=== PATIENT | male | born 1945 | race Caucasian/White ===

== ENCOUNTER 2019-11-29 06:21 | Observation (INO) ==
--- NOTE | 2019-10-25 15:49 | PAT Medication Instructions ---
Medication Instructions Date of Service October 25, 2019 Home Medications Medication Instructions Recorded hydrocortisone 2.5 % topical cream 1 appln MT BID PRN #30 gm 09/11/19 with perineal applicator ascorbic acid (vitamin C) 500 mg capsule 500 mg PO QAM aspirin 81 mg tablet,delayed release 81 mg PO QAM glucosamine-chondroitin 250 mg-200 mg tablet 1 tab PO BID hydrocortisone 2.5 % topical cream with perineal applicator 1 appln MT BID PRN Now [facility] 1 tab PO BID acetaminophen [Tylenol Extra Strength] 1,000 mg PO Q6H PRN lisinopril 5 mg PO QAM STOP taking 2 weeks before surgery (or as soon as possible if surgery is within 2 weeks) glucosamine-chondroitin 250 mg-200 mg tablet 1 tab PO BID DO NOT take the morning of surgery ascorbic acid (vitamin C) 500 mg capsule 500 mg PO QAM [facility] 1 tab PO BID lisinopril 5 mg PO QAM hydrocortisone 2.5 % topical cream with perineal applicator 1 appln MT BID PRN Take morning of surgery With a small sip of water, OTHERWISE NOTHING TO EAT OR DRINK AFTER MIDNIGHT: acetaminophen [Tylenol Extra Strength] 1,000 mg PO Q6H PRN (okay to take up to 4 hours prior to surgery if needed) Take evening before surgery hydrocortisone 2.5 % topical cream with perineal applicator 1 appln MT BID PRN (if needed) [facility] 1 tab PO BID acetaminophen [Tylenol Extra Strength] 1,000 mg PO Q6H PRN (if needed) Other Notes If you have any questions please call us at [phone] or [phone] or [phone] or [phone]
--- NOTE | 2019-10-29 11:21 | Anesthesiology Consultation ---
Date of Service October 29, 2019 Assessment & Plan (1) Encounter for pre-operative examination: - Per PAT assessment on 10/28: Travel screen- Lives in [facility]. Uses PPE. No known COVID-19 positive contacts. No current COVID-19 related symptoms. Surgeon arranging preop COVID testing (11/24; [facility]). Awaiting results. Chart Review Chart Review: Acceptable Risk for Surgery and Patient seen in Pre Admission Testing Teaching & Discussion Pre-Anesthesia Teaching/Discussion Notes: Instructed NPO after midnight before surgery,except medications with 15 cc of water. Medication instructions provided according to the PAT guidelines. History Surgery Operation Date: 11/29/19 10:40 Proposed Procedures p Left Total Knee Arthroplasty - Brandt Canchola MD Height/Weight Height: 5 ft 10.5 in Weight: 92.8 kg Allergies Allergy/AdvReac Type Severity Reaction Status Date / Time piroxicam [From Feldene] Allergy Unknown unknown Verified 10/29/19 11:14 celebrex AdvReac Unknown nose Uncoded 10/29/19 11:14 bleeding, tinnitus Medications Home Medications Medication Instructions Recorded Confirmed Last Taken ascorbic acid (vitamin C) 500 mg 500 mg PO QAM cap 10/22/18 10/22/19 Unknown capsule aspirin 81 mg tablet,delayed 81 mg PO QAM tab 10/22/18 10/22/19 Unknown release glucosamine-chondroitin 250 mg-200 1 tab PO BID tab 10/22/18 10/22/19 Unknown mg tablet hydrocortisone 2.5 % topical cream 1 appln MO BID PRN #30 gm 09/11/19 10/22/19 Unknown with perineal applicator [facility] 1 tab PO BID 10/22/19 10/22/19 Unknown acetaminophen [Tylenol Extra 1,000 mg PO Q6H PRN 10/22/19 10/22/19 Unknown Strength] lisinopril 5 mg PO QAM 10/22/19 10/22/19 Unknown Past Medical History Medical History Allergic rhinitis Benign essential hypertension BPH (benign prostatic hyperplasia) Osteoarthritis Exercise / Class Metabolic Activity II 4-5 Yardwork/Stairs/Walk up hill (one flight of stairs (no chest pain or sob)) Past Family History Family History Father Cancer, Onset Age: 64 Bladder 64, stomach Cancer age 64 SLE (systemic lupus erythematosus) Sister Multiple myeloma, Onset Age: 62 Denies family history of Ovarian cancer Prostate cancer Myocardial infarction Breast cancer Colorectal cancer Past Surgical History Surgical History History of arthroplasty of left shoulder 2007 History of colonoscopy History of inguinal herniorrhaphy History of left shoulder replacement History of lumbar laminectomy History of total hip arthroplasty right Past Anesthesia History No Hx of Anesthesia Complications and No Family Hx of Anesthesia Complications History of PONV No Hx of PONV and No Hx of Motion Sickness Social History Smoking Status: Former smoker Do You Dip or Chew Tobacco: No Smoking End Date: QUIT 20 YEARS AGO Hx Alcohol Use: Yes Alcohol type: beer alcohol intake frequency: 0-2 drinks per day (1 drink/day) Hx Substance Use: No Review of Systems Patient denies chest pain, shortness of breath, dyspnea on exertion, fever, chills, cough, wheezing, palpitations. Physical Exam Vital Signs VITALS BP 132/87 P77 TEMP 98.2 SP02 94%RA RESP 16 PHYSICAL Full neck and c-spine range of motion. Full TMJ range of motion. TMD 3 finger breaths Mallampati Score 2 Dentition: upper/lower dentures Lungs: clear throughout to auscultation Cardiac: regular rate and rhythm, no murmurs noted Spine: normal Carotid arteries: negative bruit Extremities: no edema Testing Laboratory Results 10/29/19 11:39 10/29/19 11:39 PT 10.4 Seconds (9.0-12.0) 10/29/19 11:39 INR 1.0 (0.9-1.1) 10/29/19 11:39 APTT 25.0 Seconds (21.0-31.0) 10/29/19 11:39 Blood Type A Positive 10/29/19 11:39 Antibody Screen NEGATIVE 10/29/19 11:39 Surgeon's office made aware of low WBC* Electrocardiogram Date: 10/29/19 NSR with sinus arrhythmia at 64bpm. Chest X-Ray Date: 10/29/19 Findings: + NAD
--- NOTE | 2019-10-29 12:54 | XRay Report ---
XR chest Pre-admission PA/Lat CLINICAL HISTORY: Preoperative chest COMPARISON STUDY: No previous studies for comparison. FINDINGS: The cardiac and mediastinal contours are normal. There is no evidence of focal pulmonary co nsolidation. There is no evidence of failure. No pleural effusions are visualized.[ IMPRESSION: No active disease in the chest. ACT 112: Negative or not required by law. Electronically signed by: Luke Garcia M.D. 10/29/2019 12:53 PM
--- NOTE | 2019-10-29 13:11 | Electrocardiogram Report ---
Test Reason : Blood Pressure : / mmHG Vent. Rate : 064 BPM Atrial Rate : 064 BPM P-R Int : 146 ms QRS Dur : 088 ms QT Int : 388 ms P-R-T Axes : 049 067 026 degrees QTc Int : 400 ms Normal sinus rhythm with sinus arrhythmia Normal ECG No previous ECGs available Confirmed by Joshua Connolly ([id number]) on 10/29/2019 1:11:15 PM Referred By: Brandt Canchola Confirmed By:Joshua Connolly
[2019-10-29 13:47] LABS: Basophils # (auto) 0.02 K/uL (0-0.2); Basophils % (auto) 0.5 %; Eosinophils # (auto) 0.05 K/uL (0-0.5); Eosinophils % (auto) 1.3 %; Hematocrit (blood only) 41.1 % (42-52); Lymphocytes # (auto) 0.88 K/uL (1.2-3.4); Lymphocytes % (auto) 22.5 %; Mean Corpuscular Hemoglobin 32.6 pg (25-34); Mean Corpuscular Hgb Conc 34.1 g/dL (32-36); Mean Corpuscular Volume 95.6 fL (80-100); Mean Platelet Volume 11.6 fL (7.4-10.4); Monocytes # (auto) 0.47 K/uL (0.11-0.59); Neutrophils # (auto) 2.49 K/uL (1.4-6.5); Neutrophils % (auto) 63.7 %; Platelet Count 208 K/uL (130-400); RDW Standard Deviation 45.6 fL (36.4-46.3); White Blood Count 3.91 K/uL (4.8-10.8)
[2019-10-29 13:52] LABS: Partial Thromboplastin Ratio 0.9; Prothrombin Time 10.4 Seconds (9.0-12.0)
[2019-10-29 13:53] LABS: BUN Creatinine Ratio 20.7 (10-20); Blood Urea Nitrogen 18 mg/dl (7-18); C Reactive Protein < 0.29 mg/dl (0-0.29); Calcium 9.7 mg/dl (8.5-10.1); Carbon Dioxide 27 mmol/L (21-32); Chloride 104 mmol/L (98-107); Creatinine Clr Calc Pharmacy 84.4 ml/min; Est GFR (African American) 97.6; Est GFR (Non-African American) 84.2; Glucose 94 mg/dl (70-99); Potassium 4.1 mmol/L (3.5-5.1); Sodium 138 mmol/L (136-145)
--- NOTE | 2019-11-23 17:49 | History and Physical Report ---
DATE OF ADMISSION: 11/29/2019 CHIEF COMPLAINT: Left knee pain, discomfort and stiffness. HISTORY OF PRESENT ILLNESS: The patient is a 74-year-old gentleman from [place] who presents primarily for treatment of his knees. He has got a long history of bilateral knee pain and discomfort, left side greater than the right. He injured his left knee 3-4 years ago and had some degree of quad tendon repair done in [place]. He was in [place]. 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 He fell and described a patellar fracture per the operative reports consistent with a quad repair. He is followed at [facility] for a while. His knees continue to bother him. He has been through extensive conservative care, which does not help. The more he is up on it, the more it hurts. He has difficulty climbing steps. He would like to have his knee fixed. PAST MEDICAL HISTORY: Include: 1. Hypertension. 2. Low back pain/sciatica. PAST SURGICAL HISTORY: Include: 1. Left shoulder hemiarthroplasty 15 years ago. 2. Left quad tendon repair 12/10/2012 at [place], [place]. 3. Right hip replacement. 4. Right hernia repair. 5. Back surgery. ALLERGIES: None. CURRENT MEDICINES: Include: 1. Osteo Bi-Flex. 2. Lisinopril. 3. Prostate support. 4. Low dose aspirin. 5. Dasia-C. SOCIAL HISTORY: A 74-year-old male. He lives in [place]. He is . A 1-2 drinks per day. Does not smoke. FAMILY HISTORY: Noncontributory. REVIEW OF SYSTEMS: Significant for multiple musculoskeletal aches and pains. Denies any chest pain or shortness of breath. No history of DVT or PE. No known bleeding problems. PHYSICAL EXAMINATION GENERAL: Shows a pleasant, middle-aged male. He looks to be in good health. HEENT: Benign. NECK: Supple, no lymphadenopathy. LUNGS: Clear to auscultation. HEART: Has a regular rate and rhythm. ABDOMEN: Soft, nontender, nondistended. EXTREMITIES: Grossly neurovascularly intact except as follows. Examination of the left knee reveals a patient who ambulates independently. He has got varus alignment to his knee, a little bit of varus thrust. He has got a well-healed incision over the front of his knee. Small knee effusion. Range of motion about 10 degrees short of full extension to 120 degrees of flexion. There is no instability. No pain with hip motion. X-RAYS: X-rays of the left knee reviewed. Shows advanced left knee DJD. He has got complete loss of his joint space. He has got osteophytes in all 3 compartments with some chondrocalcinosis. He has got evidence of previous quad repair. 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 He does have a little bit of an extensor lag and a flexion contracture. He has failed conservative treatment. He would like to have his knee fixed. PLAN: We are going to take him to the operating room and do a left total knee replacement. I did tell him with a history of a quad repair, it certainly makes a bit more difficult. The risks and benefits of left total knee replacement were explained to the patient including but not limited to DVT, PE, , infection, neurological injury, vascular injury, bleeding problem, pain, limited range of motion, stiffness, failure to relieve symptoms, incomplete relief of symptoms, need for further surgery in future, fracture, leg length inequality, nerve palsy, persistent pain, etc. The patient understands and desires to proceed. Informed consent was obtained.
[~2019-11-29 06:21] MED LIST: ACETAMINOPHEN 500 MG TAB PO SCH; BUPIVACAINE LIPOSOME/PF 266 MG, BUPIVACAINE/EPINEPHRINE 50 ML, SODIUM CHLORIDE 0.9% 30 ... INFIL SCH; CEFAZOLIN 2000MG 2,000 MG/15 ML SYR IV SCH; FAMOTIDINE 20 MG TAB PO SCH; GABAPENTIN 300 MG CAP PO SCH; LR 500ML BOLUS, THEN 15ML/HR IV SCH; LR 60ML/HR IV SCH; METOCLOPRAMIDE HCL 10 MG TABLET PO SCH; TRANEXAMIC ACID 1,000 MG **IV Intra-op IV SCH
[2019-11-29] MEDS ORDERED: BUPIVACAINE/EPINEPHRINE 0.25% 1:200,000 30 ML VIAL ONE ×2 (06:29→08:41)
[2019-11-29] MEDS ORDERED: BUPIVACAINE 0.5 % 5 MG/1 ML PF 10ML VIAL ONE (06:29)
--- NOTE | 2019-11-29 06:48 | History & Physical Bridge Note ---
Date of Service November 29, 2019 History & Physical Bridge Note I have examined the patient, reviewed the History & Physical and in the interval since the performance of the History & Physical I have noted the following changes of clinical significance: no changes noted
[2019-11-29] MEDS ORDERED: LIDOCAINE HCL 2% 2 ML VIAL/AMP(20MG/ML) INFIL ONE (07:31)
[2019-11-29] MEDS ORDERED: PROPOFOL IV EMULSION 10 MG/ML 20 ML VIAL IV ONE ×2 (07:31→09:34)
[2019-11-29] MEDS ORDERED: MIDAZOLAM HCL 1 MG/ML 2ML VIAL ONE (07:32)
[2019-11-29] MEDS ORDERED: ONDANSETRON INJ 2 MG/ML 2 ML VIAL ONE (07:32)
[2019-11-29] MEDS ORDERED: fentaNYL citrate 100 MCG/2 ML VIAL ONE (07:32)
[2019-11-29] MEDS ORDERED: DEXAMETHASONE SOD INJ 4 MG/ML VIAL ONE (07:33)
[2019-11-29] MEDS ORDERED: PROMETHAZINE HCL 12.5 MG in SODIUM CHLORIDE 0.9% 50 ML IV PRN (08:07)
[2019-11-29] MEDS ORDERED: ONDANSETRON INJ 2 MG/ML 2 ML VIAL IV PRN ×2 (08:07→12:39)
[2019-11-29] MEDS ORDERED: ATROPINE SULFATE 0.1 MG/ML 10ML SYR IV PRN (08:07)
[2019-11-29] MEDS ORDERED: fentaNYL citrate 100 MCG/2 ML VIAL IV PRN (08:07)
[2019-11-29] MEDS ORDERED: ePHEDrine sulfate 50 MG/ML AMP IV PRN (08:07)
[2019-11-29] MEDS ORDERED: HYDROmorphone INJ 2 MG/ML SYR/VIAL IV PRN (08:07)
[2019-11-29] MEDS ORDERED: SODIUM CHLORIDE 0.9% PF 50 ML VIAL ONE (08:41)
[2019-11-29] MEDS ORDERED: VANCOMYCIN HCL 1000MG/20ML VIAL ONE (08:42)
[2019-11-29] MEDS ORDERED: BUPIVACAINE LIPOSOME 1.3% 266 MG/20 ML VIAL ONE (08:42)
[2019-11-29] MEDS ORDERED: BACITRACIN INJ 50,000 UNIT VIAL ONE (08:42)
[2019-11-29] MEDS ORDERED: ePHEDrine sulfate 50 MG/ML AMP ONE (10:40)
--- NOTE | 2019-11-29 10:50 | Post Operative Brief Note ---
PG Immediate Post Op with CF Date of Surgery November 29, 2019 Pre & Post Diagnosis Operation Date: 11/29/19 08:50 Pre-Op Diagnosis: Left Knee Advanced Degenerative Joint Disease Post-Op Diagnosis: Left Knee Advanced Degenerative Joint Disease I identified the patient and participated in the time-out.: Yes Procedure Operation Date: 11/29/19 08:50 Actual Procedures p Left Total Knee Arthroplasty(Left) - Brandt Canchola MD Surgeon Brandt Canchola MD Real Estate Sales Agent Kay, PAC Estimated Blood Loss 50 Findings Consistent with Post-Op Diagnosis Fluids 1300 cc Specimens Specimen Description: A. Left knee bone and tissue. Drains Reynoso Catheter Anesthesia Type Spinal MAC Complications none Disposition Accompanied Patient To Recovery: No Disposition: Recovery Room
--- NOTE | 2019-11-29 11:04 | Operative Report ---
Post Operative Report Pre & Post Diagnosis Operation Date: 11/29/19 08:50 Pre-Op Diagnosis: Left Knee Advanced Degenerative Joint Disease Post-Op Diagnosis: Left Knee Advanced Degenerative Joint Disease I identified the patient and participated in the time-out.: Yes Procedure Operation Date: 11/29/19 08:50 Actual Procedures p Left Total Knee Arthroplasty(Left) - Brandt Canchola MD Surgeon Brandt Canchola MD Biomedical Engineer Kay, PAC Estimated Blood Loss 50 Findings Consistent with Post-Op Diagnosis Operative findings revealed advanced left knee DJD. He had grade 4 [id number] disease primarily the medial and patellofemoral compartments. He had a fixed varus deformity to his knee. He had a lot of bone in the quad tendon itself in a very stiff extensor mechanism due to his previous quad repair. Moderate-sized joint effusion. Fluids 1300 cc. Specimens Left knee sent for pathology. Drains None. 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 He did have a left quad tendon repair from a fall about 7 years ago. He never got to full motion of his knee back. He said persistent pain discomfort unresponsive conservative care. X-rays show advanced DJD. He elected proceed with total knee arthroplasty. Description of Procedure Operative implants consist of: 1. Biomet Vanguard size 75 left posterior stabilized femoral component. 2. Biomet size 75 tibial tray. 3. 10 mm posterior stabilized polyethylene insert. 4. 31 x 8 all poly-patella. The patient was taken to the operating room identified and placed on the operating table supine position. All contact areas were appropriately padded. IV antibiotics were tried by anesthesia team. A spinal anesthetic and abductor canal block had been provided in the holding area. A Reynoso catheter was placed in sterile fashion. A left thigh turn was then placed in the left lower extremities and prepped and draped in usual sterile fashion. The left leg was elevated exsanguinated with use of an Esmarch interspace at 300 mmHg. An anterior approach left knee was then performed to longitudinal incision centered over the patella. I did use his previous incision from his quad repair. Sharp dissection was carried through subcutaneous tissues down to the extensor mechanism. A medial parapatellar arthrotomy incision was made. Some subperiosteal dissection was carried out medially. The fat pad was resected from each patella tendon. The lateral patellofemoral ligament was released. Patella was subluxated laterally. There were several bony pieces in the quad tendon itself but I did not think I could take these out without sacrificing the quad tendon and extensor mechanism. Therefore elected to leave the bone fragments there. The knee was flexed. The osteophytes were taken off distal femur P the ACL and PCL were then released from distal femur the tibia subluxate anteriorly. The external femoral alignment jig was then placed the interface the tibia and adjusted 14 mm medially. Proximal tibial cut was made remove about 2 mm of bone from most efficient aspect medial tibial plateau. The tibia was then sized to a size 75. Attention drawn the femur. The distal femur was then with a sharp drill. The intramedullary canal was suction. A left 6 degree valgus cutting guide was placed. The distal femoral cutting block was pinned in place. The distal femoral cut was made to take an additional 3 mm of bone off distal femur. The femur was then sized to a size 75. We did downsize a slightly. The AP cutting block was pinned parallel to the epicondylar axis which was 5 degrees of external rotation. The anterior cut, anterior chamfer, posterior cut, posterior chamfer cuts were made. The box cutting guide was placed in just slight lateral and the box cut was made. The knee was flexed. The remnants of the medial lateral menisci were excised. The osteophytes were taken off the posterior aspect the femur. A trial femoral component was placed. I did release some of the soft tissues from the posterior aspect of his tibia in order to fix itself flexion contracture. The tibial tray was pinned in maximum external rotation and the drill and stem punch were used to create defect in the proximal tibia for the tibial tray. The knee was then trialed and the 10 mm insert fit most appropriately. It was a little bit lax but I wanted to leave a little bit looser than tight due to is a limited motion preoperatively. Attention drawn the patella. The patella was cleaned of all soft tissues. Patella was quite thick and encased in about a bunch of scar tissue. It was a little difficult to determine the actual outlines and dimensions of the patella due to this. I did cleaned off the best I could with without sacrificing any the extensor mechanism which was a major concern. The patella measured 25 mm thickness and cut down to 15. I did leave it thicker than usual due to his history of quad repair and the scarring around the patella. Patella was then sized to a size 31. Lug holes were drilled for 31 patella. The lateral osteophyte is moved. Patella button was placed. Knee was taken through range of motion patella tracked nicely with no thumbs test. Attention drawn to place the permanent components. All trial components were removed. Bone plug was placed in the distal femur limit blood loss. A double batch Palacos G cement was mixed with an additional gram of vancomycin due to his history of a previous open surgery. A Biomet Vanguard size 75 left posterior stabilized femoral component, size 75 tibial tray, a 10 mm posterior box polyethylene insert, and a 31 x 8 all poly-patella then cemented in place. The knee was brought out into full extension until cement hardened. Final cement check was then performed. Pericapsular tissues were injected with total 100 cc of combination of 20 cc of Exparel, 30 cc normal saline, 50 cc of quarter percent Marcaine with epinephrine. Patient did receive 1 g tranexamic acid. Then let down for turn and turn time 66 minutes. Hemostasis assured with electrocautery. Wounds once again irrigated. Extensor mechanism then closed with combination 1 PDS suture #1 Vicryl suture in a [id number] fashion. We did use some #2 Vicryl as well because on repairing his quad mechanism there was a lot of bone which we Brought in into we need a longer needle. The extensor mechanism then checked and found to be intact. The subcutaneous tissue then closed with 2 Dexon suture in buried interrupted fashion and skin was closed skin nathalie. Leg was then cleaned dried a sterile dressing composed Xeroform, 4 x 4's, sterile cast padding, Garfield bandage were applied. The patient then transferred to the recovery room in stable condition. Patient tolerated the procedure well and there were no complications. Yusuf Villanueva, my physician visitor services information assistant, was present for the entire procedure. His assistance was required for appropriate patient positioning, prepping and draping, surgical exposure, performing the technical details the operation, placement of the implants, closure of the wound, and placement of the sterile bandage. I attest to the content of the Intraoperative Record and any orders documented therein. Any exceptions are noted below.
--- NOTE | 2019-11-29 11:28 | XRay Report ---
XR knee LT 1 or 2V routine CLINICAL HISTORY: Surgical Post Op COMPARISON: Knee radiographs October 10, 2019 FINDINGS: Alignment of the total left knee arthroplasty is anatomic. There is no periprosthetic frac ture or unexpected radiopaque foreign body. There are skin nathalie. IMPRESSION: Expected findings following total left knee arthroplasty. ACT 112: Negative or not required by law. Electronically signed by: Demetrio Tuttle M.D. 11/29/2019 11:27 AM
[2019-11-29] MEDS ORDERED: HYDROCORTISONE HC 2.5% CRM 30GM TUBE EXT PRN (12:39)
[2019-11-29] MEDS ORDERED: METOCLOPRAMIDE HCL INJ 5 MG/ML 2 ML VIAL IV PRN (12:39)
[2019-11-29] MEDS ORDERED: TAMSULOSIN HCL 0.4 MG CAP PO PRN (12:39)
[2019-11-29] MEDS ORDERED: NALOXONE HCL 0.4 MG/1 ML VIAL/CARP IV PRN (12:39)
[2019-11-29] MEDS ORDERED: OXYCODONE HCL IR 5 MG TAB (IMMEDIATE RELEASE) PO PRN (12:39)
[2019-11-29] MEDS ORDERED: HYDROmorphone INJ 0.5 MG/0.5 ML SYR IV PRN (12:39)
[2019-11-29] MEDS ORDERED: bisacodyL 10 MG SUPP PR PRN (12:39)
[2019-11-29] MEDS ORDERED: MAGNESIUM HYDROXIDE SUSP 30 ML UDC PO PRN (12:39)
[2019-11-29] MEDS: ACETAMINOPHEN 500 MG TAB PO SCH ×2 (13:59→21:38)
[2019-11-29] MEDS: KETOROLAC TROMETHAMINE 15 MG/ML VIAL IV SCH ×2 (13:59→20:36)
--- NOTE | 2019-11-29 14:04 | Anesthesiology Progress Note ---
Date of Service November 29, 2019 Anesthesia Post Procedure Vital Signs Vital Signs: Temp Pulse Pulse Pulse Resp BP BP 11/29/19 13:57 82 18 133/80 11/29/19 13:17 36.6 C 83 16 147/79 H 11/29/19 12:31 36.7 C 74 16 142/83 H 11/29/19 12:10 73 20 124/75 11/29/19 12:00 72 20 112/72 11/29/19 11:45 36.4 C L 81 20 132/84 11/29/19 11:35 65 20 116/67 11/29/19 11:25 69 20 121/71 11/29/19 11:15 70 17 112/67 11/29/19 11:05 80 18 117/67 11/29/19 10:55 36.2 C L 79 15 126/70 11/29/19 07:33 65 18 129/81 11/29/19 07:01 37 C 83 20 130/91 Pulse Ox 11/29/19 13:57 96 11/29/19 13:17 95 11/29/19 12:31 95 11/29/19 12:10 93 11/29/19 12:00 93 11/29/19 11:45 95 11/29/19 11:35 95 11/29/19 11:25 95 11/29/19 11:15 93 11/29/19 11:05 93 11/29/19 10:55 99 11/29/19 07:33 95 11/29/19 07:01 94 Transfer of Care Handoff Completed per policy Notes Mental Status: alert / awake / arousable and participated in evaluation Patient Amnestic to Procedure: Yes Nausea / Vomiting: adequately controlled Pain: adequately controlled Airway Patency, RR, SpO2: stable & adequate BP & HR: stable & adequate Hydration State: stable & adequate Anesthetic Complications: no major complications apparent and Pt Satisfied with anesthetic care
[2019-11-29] MEDS: SODIUM CHLORIDE 0.9% 1000ML 1,000 ML IV SCH (14:11)
[2019-11-29] MEDS: FERROUS GLUCONATE 324 MG TAB PO SCH (16:43)
[2019-11-29] MEDS: ASCORBIC ACID 500 MG TAB PO SCH (16:43)
[2019-11-29] MEDS: CEFAZOLIN 2000MG 2,000 MG/15 ML SYR IV SCH (16:43)
[2019-11-29] MEDS ORDERED: TRANEXAMIC ACID / 0.7% NACL 1,000 MG/100 ML BAG IV SCH (17:00)
[2019-11-29] MEDS: DOCUSATE SODIUM 100 MG CAP PO SCH (20:35)
[2019-11-29] MEDS: TAPENTADOL HCL ER 50 MG TABCR PO SCH (20:35)
[2019-11-29] MEDS: SENNA 8.6 MG TAB PO SCH (20:36)
[2019-11-29] MEDS: ASPIRIN 81 MG ECTAB PO SCH (20:36)
[2019-11-29] MEDS ORDERED: [UNRECOGNIZED DRUG - OTHER] PO SCH (21:00)
[2019-11-30] MEDS: SODIUM CHLORIDE 0.9% 1000ML 1,000 ML IV SCH (00:28)
[2019-11-30] MEDS: KETOROLAC TROMETHAMINE 15 MG/ML VIAL IV SCH ×4 (01:22→20:54)
[2019-11-30] MEDS: CEFAZOLIN 2000MG 2,000 MG/15 ML SYR IV SCH (01:22)
[2019-11-30] MEDS: ACETAMINOPHEN 500 MG TAB PO SCH ×3 (05:28→21:01)
[2019-11-30 07:06] LABS: Hematocrit (blood only) 32.6 % (42-52); Hemoglobin 11.1 g/dL (14.0-18.0); Mean Corpuscular Hemoglobin 32.5 pg (25-34); Mean Corpuscular Volume 95.3 fL (80-100); Mean Platelet Volume 10.5 fL (7.4-10.4); Platelet Count 167 K/uL (130-400); RDW Coefficient of Variation 13.1 % (11.5-14.5); RDW Standard Deviation 45.5 fL (36.4-46.3); Red Blood Count 3.42 M/uL (4.7-6.1); White Blood Count 8.02 K/uL (4.8-10.8)
[2019-11-30 07:34] LABS: BUN Creatinine Ratio 18.6 (10-20); Calcium 8.4 mg/dl (8.5-10.1); Creatinine Clr Calc Pharmacy 85.3 ml/min; Est GFR (African American) 98.1; Est GFR (Non-African American) 84.6; Potassium 3.8 mmol/L (3.5-5.1)
[2019-11-30] MEDS: lisinopriL 5 MG TAB PO SCH (08:49)
[2019-11-30] MEDS: DOCUSATE SODIUM 100 MG CAP PO SCH ×2 (08:49→20:58)
[2019-11-30] MEDS: FERROUS GLUCONATE 324 MG TAB PO SCH ×2 (08:49→17:32)
[2019-11-30] MEDS: ASCORBIC ACID 500 MG TAB PO SCH ×2 (08:50→17:32)
[2019-11-30] MEDS: MULTIVITAMIN TAB PO SCH (08:50)
[2019-11-30] MEDS: ASPIRIN 81 MG ECTAB PO SCH ×2 (08:50→20:58)
[2019-11-30] MEDS: TAPENTADOL HCL ER 50 MG TABCR PO SCH ×2 (08:55→21:03)
[2019-11-30] MEDS ORDERED: NON-FORMULARY MEDICATION (Ascorbic Acid (Vitamin C) 500 MG) PO SCH (09:00)
--- NOTE | 2019-11-30 09:01 | Progress Notes ---
DATE: 11/30/2019 SUBJECTIVE: A 74-year-old gentleman postop day 1 from a left knee replacement. He is doing pretty well. Not having any pain yet. No chest pain or shortness of breath. Not feeling dizzy or lightheaded. OBJECTIVE: VITAL SIGNS: Temperature 36.7. Vital signs stable. GENERAL: Shows a pleasant, middle-aged male. He is sitting up in bed, looks comfortable. LUNGS: Clear to auscultation. HEART: Regular rate and rhythm. ABDOMEN: Soft, nontender, nondistended. EXTREMITIES: Grossly neurovascularly intact except as follows. Examination of the left leg reveals the leg to be well aligned. He can dorsiflex and plantarflex his foot appropriately. He has got brisk refill. His sensory exam is intact to light touch. He can do a straight leg raise. LABORATORY DATA: Hemoglobin 11.1, hematocrit 32.6. Electrolytes are stable. ASSESSMENT: A 74-year-old gentleman postop day 1 from left knee replacement, doing well. His pain is controlled. He is neurologically intact. PLAN: 1. DVT prophylaxis including thigh-high TEDs, SCDs, and aspirin twice a day. 2. PT/OT. Weight bear as tolerated. Left total knee protocol. 3. Pain control, doing well with current pain regimen. 4. Disposition: Plan to discharge to home with some home health once adequately recovered and medically stable.
[2019-11-30] MEDS: SENNA 8.6 MG TAB PO SCH (20:58)
[2019-12-01] MEDS: KETOROLAC TROMETHAMINE 15 MG/ML VIAL IV SCH ×2 (02:04→07:13)
[2019-12-01] MEDS: ACETAMINOPHEN 500 MG TAB PO SCH (05:43)
[2019-12-01] MEDS: ASPIRIN 81 MG ECTAB PO SCH (07:12)
[2019-12-01] MEDS: ASCORBIC ACID 500 MG TAB PO SCH (07:12)
[2019-12-01] MEDS: FERROUS GLUCONATE 324 MG TAB PO SCH (07:12)
[2019-12-01] MEDS: MULTIVITAMIN TAB PO SCH (07:13)
[2019-12-01] MEDS: lisinopriL 5 MG TAB PO SCH (07:13)
[2019-12-01] MEDS: DOCUSATE SODIUM 100 MG CAP PO SCH (07:13)
[2019-12-01] MEDS: TAPENTADOL HCL ER 50 MG TABCR PO SCH (07:24)
--- NOTE | 2019-12-01 08:58 | Orthopedic Progress Note ---
Date of Service December 01, 2019 Assessment & Plan (1) Osteoarthritis of knees, bilateral: Continue plan of care. Stable for discharge today. 1. DVT prophylaxis including thigh-high TEDs, SCDs, and aspirin twice a day. 2. PT/OT. Continue at home. Weight bear as tolerated. Left total knee protocol. 3. Pain control, doing well with current pain regimen. 4. Disposition: Plan to discharge to home today with some home health (2) S/P knee replacement: Admission and Anticipated Discharge Date Admission Date: November 29, 2019 Subjective Manageable pain overnight. Working with physical therapy. Reports no significant pain as he does active knee extensions. Review of Systems Review of Systems: All systems reviewed & are unremarkable except as noted in HPI & below Physical Exam Physical Exam: Left lower extremity: Diffuse edema, as expected. Mild drainage onto his SEBASTIAN hose. Distally neurovascularly intact. Range of motion actively from -5 to 100 degrees. Constitutional: well developed and well nourished; no acute distress and not intoxicated appearing ENMT: external ear and nose normal, oropharynx normal Respiratory: normal respiratory effort; no respiratory distress Cardiovascular: Extremities: normal capillary refill; no edema Skin: no rashes, warm and dry Psychiatric: A+Ox3, euthymic affect Results & Data ([facility]) Vital Signs (Past 12 Hours) Vital Signs Temp Pulse Pulse Resp BP BP Pulse Ox 12/01/19 07:29 36.8 C 73 78 14 110/67 92 12/01/19 06:53 36.8 C 78 14 110/67 92 11/30/19 23:31 37.2 C 92 H 14 93/59 L 92 PG Care Time/CCT Total # of Minutes Spent Total Time Spent with Patient: Total time spent is greater than 50% in coordination of care (as documented) at patient's floor/unit and/or counseling patient: Coding Level of Care Code None Diagnoses Osteoarthritis of knees, bilateral M17.0 S/P knee replacement Z96.659
--- NOTE | 2019-12-06 08:14 | Discharge Summary ---
Date of Service December 06, 2019 Admission HPI Per Admitting Provider Documented in the H & P Admission Exam (Per Admitting) Constitutional Documented in the H & P Discharge Data Consultations 11/29/19 12:39 Consult Case Management - Discharge Planning Routine Procedures Performed Operation Date: 11/29/19 08:50 Actual Procedures p Left Total Knee Arthroplasty(Left) - Brandt Canchola MD Hospital Course (1) Status post total left knee replacement: This patient is a 74 year old male admitted on 11/29/19 and underwent total knee arthroplasty. He tolerated the procedure well and there were no complications. Transferred to the PACU post op and later to the orthopedic floor for further care. He was given ancef for antibiotic prophylaxis. He was also given SEBASTIAN stockings, SCDs, and aspirin for DVT prophylaxis. Hemoglobin, hematocrit, and vital signs were monitored during his hospital stay and remained stable. Did not require any blood transfusions. There were no complications during his hospital stay. By post op day #2 the patient was tolerating a regular diet, pain was reasonably controlled with oral pain medicine, and she was participating in physical therapy. On post op day #2 the patient was discharged home and set up with home health care. SHe was given printed discharge instructions including prescriptions for extra strength tylenol, aspirin, and oxycodone. Continue physical therapy, weight bearing as tolerated. Continue SEBASTIAN stockings. Follow up approximately 2 weeks post op or sooner if there are problems or concerns. Coding Level of Care Code None Diagnoses Status post total left knee replacement Z96.652
== END 2019-12-01 10:22 | disposition home or self-care (01) ==
LOC: ASU 06:21 → 3E 06:21
DX: Z88.8 Allergy status to other drugs, medicaments and biological substances; Z87.891 Personal history of nicotine dependence; I10 Essential (primary) hypertension; N40.0 Benign prostatic hyperplasia without lower urinary tract symptoms; Z79.82 Long term (current) use of aspirin; Z11.59 Encounter for screening for other viral diseases; Z79.899 Other long term (current) drug therapy; M17.12 Unilateral primary osteoarthritis, left knee; M19.90 Unspecified osteoarthritis, unspecified site

== ENCOUNTER 2020-06-23 06:39 | Observation (INO) ==
--- NOTE | 2020-06-17 10:54 | Anesthesiology Consultation ---
Date of Service June 17, 2020 Assessment & Plan (1) Encounter for pre-operative examination: Chart Review Chart Review: Acceptable Risk for Surgery (pending preop Covid testing results ) and Patient NOT seen in Pre Admission Testing Per nursing assessment 05/07/20, pt currently in [place] and will return 06/07/20. No known Covid infection in the past 90 days. No known Covid positive contacts or Covid related symptoms. Covid test 06/17/20= results pending. Left TKA 11/29/2019 = done under [facility] at [facility]. History Surgery Operation Date: 06/23/20 08:50 Proposed Procedures p Right Total Knee Arthroplasty - Brandt Canchola MD Height/Weight Height: 5 ft 10 in Weight: 92.986 kg Allergies Allergy/AdvReac Type Severity Reaction Status Date / Time piroxicam [From Feldene] Allergy Intermediate didn't Verified 05/07/20 10:16 feel right celebrex AdvReac Unknown nose Uncoded 05/07/20 10:16 bleeding, tinnitus Medications Home Medications Medication Instructions Recorded Confirmed Last Taken ascorbic acid (vitamin C) 500 mg 1,000 mg PO QAM cap 10/22/18 05/07/20 11/28/19 08:00 capsule glucosamine-chondroitin 250 mg-200 1 tab PO BID tab 10/22/18 05/07/20 2 Weeks Ago mg tablet ~11/15/19 hydrocortisone 2.5 % topical cream 1 appln [place] BID PRN #30 gm 09/11/19 05/07/20 Unknown with perineal applicator acetaminophen [Tylenol Extra 1,000 mg PO Q6H PRN 10/22/19 05/07/20 2 Days Ago Strength] ~11/27/19 oxycodone 5 - 10 mg PO Q6H PRN #40 tab 11/30/19 05/07/20 Unknown lisinopril 5 mg tablet 5 mg PO QAM #90 tab 12/16/19 05/07/20 Unknown miscellaneous medical supply #1 ea 12/16/19 01/09/20 Unknown saw-vit E-sod qcy-cfk-byxv-pyg 1 tab PO BID 05/07/20 05/07/20 Unknown [Prostate Health] Past Medical History Medical History Allergic rhinitis Benign essential hypertension BPH (benign prostatic hyperplasia) Foot drop, right History of fracture of foot LEFT/RIGHT > NO SURGICAL INTERVENTION Osteoarthritis Past Family History Family History Father Cancer, Onset Age: 64 Bladder 64, stomach Cancer age 64 SLE (systemic lupus erythematosus) Sister Multiple myeloma, Onset Age: 62 Denies family history of Ovarian cancer Prostate cancer Myocardial infarction Breast cancer Colorectal cancer Past Surgical History Surgical History History of carpal tunnel release RIGHT History of colonoscopy History of inguinal herniorrhaphy History of left shoulder replacement 2006 History of lumbar laminectomy History of tonsillectomy History of tooth extraction History of total hip arthroplasty right S/P knee replacement LEFT Social History Smoking Status: Former smoker Do You Dip or Chew Tobacco: Yes (JUST OCCASIONALLY) Smoking End Date: 25 YRS AGO Hx Alcohol Use: Yes Alcohol type: beer alcohol intake frequency: 0-2 drinks per day Hx Substance Use: No substance use type: does not use Testing Laboratory Results Laboratory Tests 06/11/20 06/11/20 06/11/20 12:48 12:48 12:48 WBC 4.16 L Hgb 12.5 L Hct 37.3 L Plt Count 180 PT 10.3 INR 1.0 APTT 25.1 Sodium 137 Potassium 4.0 Chloride 108 H Carbon Dioxide 28 BUN 17 Creatinine 0.76 Glucose 98 Electrocardiogram Date: 10/29/19 NSR with sinus arrhythmia at 64bpm. Chest X-Ray Date: 10/29/19 Findings: + NAD
[~2020-06-23 06:39] MED LIST changes: +BUPIVACAINE 0.5 % 5 MG/1 ML PF 10ML VIAL ONE; -CEFAZOLIN 2000MG 2,000 MG/15 ML SYR IV SCH; +EPINEPHrine INJ 1 MG/ML AMP ONE; -METOCLOPRAMIDE HCL 10 MG TABLET PO SCH; +ROPIVACAINE 0.5% 5 MG/ML 30 ML VIAL ONE; +ceFAZolin 2000MG 2,000 MG/15 ML SYR IV SCH
--- NOTE | 2020-06-23 06:52 | History & Physical Bridge Note ---
Date of Service June 23, 2020 History & Physical Bridge Note I have examined the patient, reviewed the History & Physical and in the interval since the performance of the History & Physical I have noted the following changes of clinical significance: no changes noted
[2020-06-23] MEDS ORDERED: fentaNYL citrate 100 MCG/2 ML VIAL ONE (07:45)
[2020-06-23] MEDS ORDERED: MIDAZOLAM HCL 1 MG/ML 2ML VIAL ONE (07:45)
[2020-06-23] MEDS ORDERED: LIDOCAINE HCL 2% 2 ML VIAL/AMP(20MG/ML) INFIL ONE (08:57)
[2020-06-23] MEDS ORDERED: ONDANSETRON INJ 2 MG/ML 2 ML VIAL ONE (08:57)
[2020-06-23] MEDS ORDERED: PROPOFOL IV EMULSION 10 MG/ML 20 ML VIAL IV ONE (08:57)
[2020-06-23] MEDS ORDERED: BUPIVACAINE 0.25% 30 ML VIAL ONE (08:58)
[2020-06-23] MEDS ORDERED: EPINEPHrine INJ 1 MG/ML AMP ONE (08:58)
[2020-06-23] MEDS ORDERED: BACITRACIN INJ 50,000 UNIT VIAL ONE (08:59)
[2020-06-23] MEDS ORDERED: SODIUM CHLORIDE 0.9% PF 50 ML VIAL ONE (08:59)
[2020-06-23] MEDS ORDERED: BUPIVACAINE LIPOSOME 1.3% 266 MG/20 ML VIAL ONE (08:59)
[2020-06-23] MEDS ORDERED: ATROPINE SULFATE 0.1 MG/ML 10ML SYR IV PRN (11:08)
[2020-06-23] MEDS ORDERED: ePHEDrine sulfate 50 MG/ML AMP IV PRN (11:08)
[2020-06-23] MEDS ORDERED: PHENYLEPHRINE 100MCG/ML 5ML SYR ONE (11:14)
[2020-06-23] MEDS ORDERED: ePHEDrine sulfate 50 MG/ML SYR ONE (11:14)
--- NOTE | 2020-06-23 11:15 | Operative Report ---
Post Operative Report Pre & Post Diagnosis Operation Date: 06/23/20 08:50 Pre-Op Diagnosis: Right Knee Degenerative Joint Disease Post-Op Diagnosis: Right Knee Degenerative Joint Disease I identified the patient and participated in the time-out.: Yes Procedure Operation Date: 06/23/20 08:50 Actual Procedures p Right Total Knee Arthroplasty, Cemented(Right) - Brandt Canchola MD Surgeon Brandt Canchola MD Water Treatment Operator OTILIA Villanueva Estimated Blood Loss 50 Findings Consistent with Post-Op Diagnosis Operative findings revealed a large right knee joint effusion. He had hemosiderin stained synovitis. He had a brown discoloration of a lot of the cartilage throughout his knee. He did have full-thickness cartilage wear in all 3 compartments but not any real eburnation. He did have hemosiderin stained menisci as well. His quad tendon was extremely thick. He did have a central area where there seemed to be some degree of a defect in the quad tendon but there was nothing that could be clearly repaired back to the patella. This was on the undersurface only. Because of the thickness of the quad tendon and signs of previous compromise, I elected not to look at the kneecap to thin for fear of weakening his quad tendon. Fluids 1300 cc Specimens Right knee sent for pathology. Drains None. 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 He had his left knee replaced about 6 months ago and is done well from this. Continued by recurrent right knee pain discomfort and effusions. X-rays show some moderate to advanced DJD. He failed conservative measures. He elected proceed with right total knee arthroplasty. Description of Procedure Operative implants consist of: 1 Biomet Vanguard size 72.5 right posterior stabilized femoral component. 2. Biomet size 75 tibial tray. 3. 10 mm posterior stabilized polyethylene insert. 4. 31 x 8 all polypatella. The patient was taken the operating, identified, placed on the operating table supine position but all contact areas were properly padded. IV antibiotics 5 by anesthesia team. A spinal anesthetic and abductor canal block had provided holding area. Reynoso catheter was placed in sterile fashion. Right thigh turn was then placed in the right lower extremities and prepped and draped in usual sterile fashion. The right leg was elevated exsanguinated with use of an Esmarch and tourniquet placed at 3 mmHg. Anterior approach to the right knee was then performed to longitudinal incision centered over the patella. Sharp dissection carried through subcutaneous tissue down the extensor mechanism. A medial parapatellar arthrotomy incision was made. He did have a very thickened quad tendon. Some subperiosteal dissection was carried out medially. The fat pad was resected from each patella tendon. Lateral patellofemoral ligament was released. Patella was subluxated laterally and the knee was flexed. The osteophytes were taken off distal femur. The ACL and PCL were then released from distal femur the tibia subluxated anteriorly. External tibial alignment jig was then placed in the interface the tibia and adjusted 14 mm medially. Proximal tibial cut was made remove about 3 to 4 mm of bone from the medial side. The tibia sized to a size 75. I did have to downsize a slightly in order to get proper rotation. Attention drawn the femur. The distal femur there with a sharp drop with intramedullary canal was suction. A right 6 degree valgus cutting guide was placed. The distal femoral cutting block was pinned in place. Distal femoral cut was made to take an additional 3 mm of bone off distal femur. The femur was then sized to a size 72.5. We did downsize a slightly. The AP cutting block was pinned parallel to the epicondylar axis which was 3 degrees of external rotation. The anterior cut, anterior chamfer, posterior cut, posterior chamfer cuts were made. Box cutting guide was placed in just slight lateral and the box cut was made. The knee was flexed. The remnants of the medial lateral menisci were excised. The osteophytes were taken off the posterior aspect of the femur. A trial femoral component was placed but the tibial tray was pinned in maximum external rotation and the drill and stem punch were used to create defect in proximal to for the tibial tray. Knee was then trialed and the 10 mm insert fit most appropriately. Attention drawn the patella. Patella was cleaned of all soft tissues. He did have some chronic degeneration of the quad itself and I did not want to cut the patella to thin it and fear of risk of further injury to the quad. The patella thickness measured 23 mm in thickness and cut down to its about 16. I was sized to a size 31 patella. Lug holes were drilled for 31 patella. The lateral osteophyte was removed. Patella button was placed. Knee was taken through range of motion patella tracked garrett thaddeus with no thumbs test. Attention drawn to place the permanent components. All trial components were removed. Bone plug was placed in the distal femur limit blood loss. A double batch Palacos G cement was mixed. A Biomet Vanguard size 72.5 right posterior stabilized femoral component, size 75 tibial tray, a 10 mm posterior stabilized polyethylene insert, and a 31 x 8 all polypatella then cemented in place. Knee was brought out in full extension total cement hardened. Final cement check was then performed. The pericapsular tissues were injected with a total of 100 cc of combination of 20 cc of Exparel, 30 cc normal saline, 50 cc of quarter percent Marcaine with epinephrine. Patient did receive 1 g tranexamic acid. The tourniquet was let down for final turn time 56 minutes. Hemostasis assured use electrocautery. Extensor mechanism closed with combination 1 PDS suture, #1 Vicryl suture, and #2 Vicryl suture in a miaouj-uh-tdomy fashion. We did use the #2 Vicryl's at the upper part with the quad was extremely thick. Extensor mechanism checked found to be intact the subcutaneous tissue was then closed with 2 Dexon suture in a buried interrupted fashion skin was closed skin nathalie. Leg was then cleaned dried and sterile dressing composed Xeroform, 4 x 4's, sterile cast padding, Garfield bandage were applied. Patient then transferred to the recovery room in stable condition. Patient tolerated procedure well no comp cases. Yusuf Villanueva, my physician operating room assistant, was present for the entire procedure. His assistance was essential and required for appropriate patient positioning, prepping and draping, surgical exposure, performing the technical details of the operation, placement the implants, closure of the wound, and placement of the sterile bandage. I attest to the content of the Intraoperative Record and any orders documented therein. Any exceptions are noted below.
--- NOTE | 2020-06-23 11:33 | XRay Report ---
XR knee RT 1 or 2V routine HISTORY: 75 years-old Male Surgical Post Op right knee total joint arthroplasty COMPARISON: 06/11/2020 TECHNIQUE: 2 views of the right knee FINDINGS: Right knee total joint arthroplasty and patella resurfacing demonstrates satisfactory alignment. Ante rior midline skin nathalie with expected postsurgical soft tissue swelling and deep tissue air. No acu te fracture or unexpected opaque foreign body. Marginal spurring of the superior patella redemonstrat ed. IMPRESSION: Right knee total joint arthroplasty with expected postoperative changes. ACT 112: Negative or not required by law. The above report was generated using voice recognition software. It may contain grammatical, syntax o r spelling errors. Electronically signed by: Brian Schmid M.D. 06/23/2020 11:31 AM
--- NOTE | 2020-06-23 11:58 | Anesthesiology Progress Note ---
Date of Service June 23, 2020 Anesthesia Post Procedure Vital Signs Vital Signs: Temp Pulse Pulse Resp BP Pulse Ox 06/23/20 11:50 36.8 C 64 14 114/66 96 06/23/20 11:40 36.8 C 82 22 117/83 94 06/23/20 11:30 77 17 121/73 96 06/23/20 11:20 67 16 109/66 97 06/23/20 11:10 86 14 106/61 98 06/23/20 11:03 36.9 C 77 12 113/63 96 06/23/20 07:19 36.7 C 71 18 130/80 95 Transfer of Care Handoff Completed per policy Notes Mental Status: alert / awake / arousable Patient Amnestic to Procedure: Yes Nausea / Vomiting: adequately controlled Pain: adequately controlled Airway Patency, RR, SpO2: stable & adequate BP & HR: stable & adequate Hydration State: stable & adequate Neuraxial Anesthesia: was administered and sensory block is resolving Anesthetic Complications: no major complications apparent
[2020-06-23] MEDS ORDERED: METOCLOPRAMIDE HCL INJ 5 MG/ML 2 ML VIAL IV PRN (12:37)
[2020-06-23] MEDS ORDERED: TAMSULOSIN HCL 0.4 MG CAP PO PRN (12:37)
[2020-06-23] MEDS ORDERED: HYDROmorphone INJ 0.5 MG/0.5 ML SYR IV PRN (12:37)
[2020-06-23] MEDS ORDERED: ONDANSETRON INJ 2 MG/ML 2 ML VIAL IV PRN (12:37)
[2020-06-23] MEDS ORDERED: HYDROCORTISONE HC 2.5% CRM 30GM TUBE EXT PRN (12:37)
[2020-06-23] MEDS ORDERED: MAGNESIUM HYDROXIDE SUSP 30 ML UDC PO PRN (12:37)
[2020-06-23] MEDS ORDERED: bisacodyL 10 MG SUPP PR PRN (12:37)
[2020-06-23] MEDS ORDERED: NALOXONE HCL 0.4 MG/1 ML VIAL/CARP IV PRN (12:37)
[2020-06-23] MEDS: SODIUM CHLORIDE 0.9% 1000ML 1,000 ML IV SCH ×2 (13:24→23:48)
[2020-06-23] MEDS: KETOROLAC TROMETHAMINE 15 MG/ML VIAL IV SCH ×2 (13:28→19:52)
[2020-06-23] MEDS: ACETAMINOPHEN 500 MG TAB PO SCH ×2 (13:28→21:04)
[2020-06-23] MEDS: PROSOURCE NO CARB 30 ML/PKT PO SCH ×2 (15:54→19:53)
[2020-06-23] MEDS ORDERED: TRANEXAMIC ACID / 0.7% NACL 1,000 MG/100 ML BAG IV SCH (17:00)
[2020-06-23] MEDS: ceFAZolin 2000MG 2,000 MG/15 ML SYR IV SCH ×2 (17:19→23:45)
[2020-06-23] MEDS: FERROUS GLUCONATE 324 MG TAB PO SCH (17:20)
[2020-06-23] MEDS: ASCORBIC ACID 500 MG TAB PO SCH (17:20)
[2020-06-23] MEDS: SENNA 8.6 MG TAB PO SCH (19:53)
[2020-06-23] MEDS: ASPIRIN 81 MG ECTAB PO SCH (19:54)
[2020-06-23] MEDS: DOCUSATE SODIUM 100 MG CAP PO SCH (19:55)
[2020-06-23] MEDS: TAPENTADOL HCL ER 50 MG TABCR PO SCH (20:02)
[2020-06-23] MEDS ORDERED: NON-FORMULARY MEDICATION (Saw-Vit E-Sod Sel-Lyc-Beta-Pyg [Prostate Health] 160-100-100 mg- PO SCH (21:00)
[2020-06-23] MEDS: oxyCODONE HCL IR 5 MG TAB (IMMEDIATE RELEASE) PO PRN ×2 (21:04→23:45)
[2020-06-24] MEDS: KETOROLAC TROMETHAMINE 15 MG/ML VIAL IV SCH ×4 (01:23→20:45)
[2020-06-24] MEDS: ACETAMINOPHEN 500 MG TAB PO SCH ×3 (05:28→21:17)
[2020-06-24 07:16] LABS: Hemoglobin 11.2 g/dL (14.0-18.0); Mean Corpuscular Hemoglobin 32.3 pg (25-34); Mean Corpuscular Hgb Conc 33.9 g/dL (32-36); Mean Corpuscular Volume 95.1 fL (80-100); Mean Platelet Volume 10.6 fL (7.4-10.4); Platelet Count 174 K/uL (130-400); RDW Coefficient of Variation 13.9 % (11.5-14.5); RDW Standard Deviation 48.3 fL (36.4-46.3); Red Blood Count 3.47 M/uL (4.7-6.1); White Blood Count 3.87 K/uL (4.8-10.8)
[2020-06-24] MEDS: DOCUSATE SODIUM 100 MG CAP PO SCH ×2 (07:36→20:43)
[2020-06-24] MEDS: ASPIRIN 81 MG ECTAB PO SCH ×2 (07:39→20:42)
[2020-06-24] MEDS: lisinopril 5 MG TAB PO SCH (07:40)
[2020-06-24] MEDS: ASCORBIC ACID 500 MG TAB PO SCH ×2 (07:40→17:17)
[2020-06-24] MEDS: PROSOURCE NO CARB 30 ML/PKT PO SCH ×3 (07:40→20:41)
[2020-06-24] MEDS: FERROUS GLUCONATE 324 MG TAB PO SCH ×2 (07:40→17:17)
[2020-06-24] MEDS: MULTIVITAMIN TAB PO SCH (07:41)
[2020-06-24] MEDS: TAPENTADOL HCL ER 50 MG TABCR PO SCH ×2 (07:46→20:46)
[2020-06-24 07:48] LABS: BUN Creatinine Ratio 22.4 (10-20); Calcium 8.6 mg/dl (8.5-10.1); Est GFR (African American) 98.9; Est GFR (Non-African American) 85.3; Potassium 4.1 mmol/L (3.5-5.1)
[2020-06-24] MEDS ORDERED: dexAMETHasone 4 MG TAB PO SCH (08:00)
--- NOTE | 2020-06-24 08:52 | Orthopedic Progress Note ---
Date of Service June 24, 2020 Assessment & Plan (1) Status post total right knee replacement: He was seen and examined by Dr. Canchola today. Continue PT/OT. WBAT. dvt prophylaxis: teds, scds, aspirin discharge planning: likely home tomorrow with home health. Subjective . 75 Year old male POD #1 from right TKA. He had quite a bit of knee pain last night. Pain is controlled now. Denies chest pain or shortness of breath. Review of Systems All systems reviewed & are unremarkable except as noted in HPI & below. Physical Exam . Alert and oriented. NAD. VSS Right leg: dressing dry and intact. He has preexisting foot drop. Results & Data Results & Data Laboratory Results . Diagnostic Findings . PG Care Time/CCT Total # of Minutes Spent Total Time Spent with Patient: Total time spent is greater than 50% in coordination of care (as documented) at patient's floor/unit and/or counseling patient: Coding Level of Care Code 96896 Post Operative Follow-Up Diagnoses Status post total right knee replacement Z96.651
[2020-06-24] MEDS ORDERED: NON-FORMULARY MEDICATION (Ascorbic Acid (Vitamin C) 500 mg capsule) PO SCH (09:00)
[2020-06-24] MEDS: oxyCODONE HCL IR 5 MG TAB (IMMEDIATE RELEASE) PO PRN ×2 (09:58→20:45)
[2020-06-24] MEDS: ALUMINUM/MAGNESIUM SUSP 30 ML UDC PO PRN (10:48)
[2020-06-24] MEDS: SENNA 8.6 MG TAB PO SCH (20:41)
[2020-06-25] MEDS: KETOROLAC TROMETHAMINE 15 MG/ML VIAL IV SCH ×2 (01:01→08:13)
[2020-06-25] MEDS: ACETAMINOPHEN 500 MG TAB PO SCH (05:11)
[2020-06-25] MEDS: ALUMINUM/MAGNESIUM SUSP 30 ML UDC PO PRN (05:27)
[2020-06-25] MEDS: oxyCODONE HCL IR 5 MG TAB (IMMEDIATE RELEASE) PO PRN (06:09)
[2020-06-25] MEDS: ASCORBIC ACID 500 MG TAB PO SCH (08:09)
[2020-06-25] MEDS: FERROUS GLUCONATE 324 MG TAB PO SCH (08:09)
[2020-06-25] MEDS: MULTIVITAMIN TAB PO SCH (08:09)
[2020-06-25] MEDS: ASPIRIN 81 MG ECTAB PO SCH (08:10)
[2020-06-25] MEDS: PROSOURCE NO CARB 30 ML/PKT PO SCH (08:10)
[2020-06-25] MEDS: lisinopril 5 MG TAB PO SCH (08:10)
[2020-06-25] MEDS: DOCUSATE SODIUM 100 MG CAP PO SCH (08:13)
[2020-06-25] MEDS: TAPENTADOL HCL ER 50 MG TABCR PO SCH (08:13)
--- NOTE | 2020-06-25 09:10 | Progress Notes ---
DATE: 06/25/2020 SUBJECTIVE: A 75-year-old gentleman postop day 2 from right knee replacement. He is doing pretty well. Pain is controlled. Therapy has gone well. No chest pain or shortness of breath. Not feeling dizzy or lightheaded. OBJECTIVE: VITAL SIGNS: Temperature is 36.8. Vital signs stable. GENERAL: Shows a pleasant, middle-aged male. He is lying in bed, looks quite comfortable. EXTREMITIES: Examination of the right leg reveals the dressing to be clean, dry and intact. Minimal drainage. 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 He can do a good straight leg raise. ASSESSMENT: A 75-year-old gentleman postoperative day 2 from a right knee replacement, doing pretty well. His pain is controlled. He is neurologically stable. He has got a chronic foot drop. PLAN: 1. DVT prophylaxis including thigh-high TEDs, SCDs, and aspirin twice a day. 2. PT/OT. Weight bear as tolerated. Right total knee protocol. 3. Pain control, doing well with current pain regimen. 4. Disposition: Plan to discharge to home with home health later today.
--- NOTE | 2020-07-02 06:37 | Discharge Summary ---
Date of Service July 02, 2020 Discharge Data Procedures Performed Operation Date: 06/23/20 08:50 Actual Procedures p Right Total Knee Arthroplasty, Cemented(Right) - Brandt Canchola MD Hospital Course (1) Status post total right knee replacement: This patient is a 75 year old male admitted on 06/23/20 and underwent total knee arthroplasty. He tolerated the procedure well and there were no complications. Transferred to the PACU post op and later to the orthopedic floor for further care. He was given ancef for antibiotic prophylaxis. He was also given SEBASTIAN stockings, SCDs, and aspirin for DVT prophylaxis. Hemoglobin, hematocrit, and vital signs were monitored during his hospital stay and remained stable. Did not require any blood transfusions. There were no complications during his hospital stay. By post op day #2 the patient was tolerating a regular diet, pain was reasonably controlled with oral pain medicine, and he was participating in physical therapy. On post op day #2 the patient was discharged home and set up with home health care. He was given printed discharge instructions including prescriptions for extra strength tylenol, aspirin, and oxycodone. Continue physical therapy, weight bearing as tolerated. Continue SEBASTIAN stockings. Follow up approximately 2 weeks post op or sooner if there are problems or concerns. Coding Level of Care Code None Diagnoses Status post total right knee replacement Z96.651
== END 2020-06-25 11:50 | disposition home health service (06) ==
LOC: ASU 06:39 → PACUINP 06:39 → 3E 13:16